=== PATIENT | female | born 1970 | race Caucasian/White ===

== ENCOUNTER 2016-05-06 20:22 | Inpatient (IN) | payer MEDICAID, OTHER ==
[~2016-05-06] VITALS: Ht 172.7 cm; Wt 59.8 kg
[2016-05-06 20:24] VITALS: BP 108/78; PULSE 109
--- NOTE | 2016-05-06 21:34 | ED.REPORT ---
HPI-General Illness Date of Service May 06, 2016 ED Provider: Fermin Brasher MD Patient is a 45 year old female with a history of laparoscopic gastric bypass 10 years ago who presents to the ED with severe LLQ abdominal pain that began at 1930 today. Patient reports the sensation of her stomach being very hard. Patient reports that the pain is so severe that she has not been able to eat anything this evening, meaning she is very thirsty and hungry. Patient admits to only drinking coffee and mountain dew today, with gummy worms as her only food source. Patient also states that she is unable to urinate due to pain. Patient reports losing 200 lbs since her weight loss surgery, with increased weight loss since January of this year. Patient also admits to having several dental infections, for which she has been gargling hydrogen peroxide. The patient states that she did accidentally swallow some, but it made her vomit immediately. Patient admits to chills but denies nausea, vomiting, diarrhea, or fever. Patient also reports having a headache for the past 2 days, which she states is due to an ingrown hair. Nursing Notes Stated Complaint: ABD PAIN Chief Complaint: Female Abdominal Pain Nursing Notes Reviewed: Yes Allergies: Coded Allergies: No Known Allergies (Unverified , 05/06/16) General Time Seen by MD: 21:34 Chief Complaint Abdominal pain Hx Obtained From: Patient Arrived By: Walk-in Sudden in Onset?: No Onset Occurred: 1 - 4 hours ago Symptom Duration: Since onset Location: : Abdomen Quality: Painful Severity: Current: Severe Severity: Maximum: Severe Recent Healthcare: No recent doctor visit, No recent hospitalization, Previous surgery Similar Sx Previous: No Past Medical History Past Medical History Depression PTSD ADD Past Surgical History Gastric bypass (laparoscopic), 10 years ago at [facility] Smoking History Unknown if Ever Smoker Social History Alcohol Use: 1-3 per day Other Social History: , Local resident Ambulatory Status Independent Review of Systems + recent weightloss Full Review of Systems Constitutional: Reports: Chills, Denies: Fever GI: Reports: Abdominal pain, Denies: Diarrhea, Nausea, Vomiting Female: Denies: Dysuria Neurologic: Reports: Headache Complete sys rev & neg: except as marked. Physical Exam Vital Signs Vital Signs Date Time Temp Pulse Resp B/P Pulse Ox O2 Delivery O2 Flow Rate FiO2 05/07/16 01:14 36.8 110 26 140/86 98 Room Air 05/06/16 22:35 36.8 113 28 144/82 97 Room Air 05/06/16 20:24 36.4 109 108/78 Room Air Initial VS: Reviewed Extremities: Vascular intact, Neuro intact Skin: Warm, Dry, No cyanosis Neurologic: Alert, Oriented, Nonfocal Psychiatric: Mood/affect normal, Behavior normal, Normal thought content General/Constitutional: Awake, Alert Appearance / Presentation: Positive: Cachectic (thin) patient is generally reactive to touch dry appearing ENT: Airway patent Mouth: Positive: Mucous membranes dry Dental / Gums: Positive: Decay extensive, Dental caries present, Dentition poor Neck: Supple, Full range of motion Respiratory / Chest: Breath sounds NL, Breath sounds = bilat, No respiratory distress, No rales, No rhonchi, No wheezing Cardiovascular: Heart rate NL, Regular rhythm, Heart sounds NL, No murmurs Abdomen: Soft, No guarding, No rebound Tenderness/Guarding/Rebound: Positive: Tender diffuse (quite tender), Negative: Rigid to palpation Interpretation & Diagnostics Lab Results Interpretation Result Diagram: 05/06/16213305/06/162133 Test 05/06/16 21:34 White Blood Count 7.4th/mm3 (3.8-10.1) Red Blood Count 4.36mil/mm3 (3.90-5.20) Hemoglobin 11.9g/dL (12.0-15.6) Hematocrit 37.1% (35.0-46.0) Mean Corpuscular Volume 85.1fL (81-100) Mean Corpuscular Hemoglobin 27.3pg (27.0-35.0) Mean Corpuscular Hemoglobin Concent 32.1% (32.0-37.0) Red Cell Distribution Width 16.4% (12.3-15.4) Platelet Count 511bil/L (150-400) Neutrophils (%) (Auto) 88.7% (40-74) Lymphocytes (%) (Auto) 7.8% (14-46) Monocytes (%) (Auto) 3.3% (4-12) Eosinophils (%) (Auto) 0% (0-5) Basophils (%) (Auto) 0.1% (0-3) Prothrombin Time 10.4sec (8.1-12.5) Prothromb Time International Ratio 0.97ratio Sodium Level 137mEq/L (134-144) Potassium Level 3.8mEq/L (3.5-5.2) Chloride Level 97mEq/L (97-108) Carbon Dioxide Level 26mmol/L (18-29) Blood Urea Nitrogen 13mg/dL (6-24) Creatinine 0.68mg/dL (0.57-1.00) Estimat Glomerular Filtration Rate 134mL/min (>59) Glucose Level 144mg/dL (60-99) Lactic Acid Level 1.6mmol/L (0.4-2.0) Calcium Level 8.8mg/dL (8.5-10.1) Magnesium Level 1.7mg/dL (1.6-2.6) Total Bilirubin 0.5mg/dL (0.0-1.2) Aspartate Amino Transf (AST/SGOT) 17U/L (0-50) Alanine Aminotransferase (ALT/SGPT) 8U/L (0-32) Alkaline Phosphatase 93U/L (25-150) Total Protein 6.4g/dL (6.4-8.4) Albumin 3.7g/dL (3.4-5.0) Lipase 11U/L (13-60) Hold Frazier Top Tube Received (Received) CT Abd / Pelvis Interpretation CONCLUSION: Findings consistent with dehiscence of the gastric anastomosis with extravasation of air, oral contrast and fluid into the peritoneal cavity. Intra- and extrahepatic duct dilation without obvious obstructing process. Please correlate with lab values. Other findings as noted above. Radiologist: Blake Pickering MD 05/06/2016 - 12:56:51 PM [facility] Study type: Abdom CT oral contrast Interpretation / Wet Read by: Interpret - Radiologist Re-Eval/Medical Decision Med Decision/Clinical Course 45-year-old female with gastric bypass ten years ago done at [facility]. She presents with acute onset abdominal pain without much in way of antecedent symptoms. She presented perforation of her stomach, presumably at the anastomosis, with abundant free air and contrast in her peritoneum. Examination was contacted and did not have availability of beds for her. Surgery was contacted and has seen her here promptly should. She was hydrated and given Zosyn IV. Pain was controlled with IV Dilaudid and Zofran. Transported to the OR in stable condition. Source of Hx: Old records Time of Eval: 23:57 Re-Evaluation/Progress Note: Rechecked the patient, who was informed of her CT result. She confirms that her original gastric bypass was preformed at [facility]. Will call this facility for transfer. Time of Eval: 00:39 Re-Evaluation/Progress Note: [facility] full and will not be able to take the patient. Informed the patient that she will be admitted to [facility]. Patient understands and agrees with this plan. All questions were addressed. Patient is now nauseaed. Consultation : Referral / Consult Name: Ever Serrato MD Consulted With: Surgeon Call Returned at: 00:37 Animal Control Specialist: Will see patient, Agrees with eval, Agrees with plan, Requested OR, Accepts admit Note: Spoke with Dr. Serrato, surgeon, about the patient's case. He agrees to take the patient to the OR and accepts admit. Counseled Regarding: Diagnosis, Lab results, Need for admission Discharge & Departure Shift Change Sign-Out Response to Therapy: Improved Primary Impression: Dehiscence of gastrointestinal anastomosis Additional Impressions: Intestinal perforation Pneumoperitoneum Disposition: ADMITTED TO HOSPITAL Discharge Condition All VS Reviewed: Yes Condition: Stable Referrals: Kirby Bustillos MD (PCP) Crit Care Except Billable Proc Time Spent: 30-74 minutes (thirty minutes) Scribe Attestation Portions of this note were transcribed by Stephanie Kramer. I, Dr. Brasher personally performed the history, physical exam and medical decision-making; I reviewed and confirmed the accuracy of the information in the transcribed note. Signed by: Rivas Ugarte, 05/07/2016, [id number] copies to: Kirby Bustillos MD, Christopher W MD May 06, 2016 21:34 Stephanie Kramer May 06, 2016 21:52
[2016-05-06 21:45] LABS: BASOPHILS % (AUTO) 0.1 % (0-3); EOSINOPHILS % (AUTO) 0 % (0-5); MONOCYTES % (AUTO) 3.3 % (4-12); Mean Corpuscular Hemoglobin 27.3 pg (27.0-35.0); Mean Corpuscular Volume 85.1 fL (81-100); NEUTROPHILS % (AUTO) 88.7 % (40-74); Platelet Count 511 bil/L (150-400)
[2016-05-06] MEDS ORDERED: 0.9% Sodium Chloride 1,000 ML IV ONE (21:50)
[2016-05-06] MEDS ORDERED: Ondansetron 2 mg/mL 2 mL Inj IVPUSH ONE (21:50)
[2016-05-06] MEDS ORDERED: Pantoprazole 4 mg/mL 10 mL Inj IVPUSH ONE (21:50)
[2016-05-06] MEDS ORDERED: Iohexol 300 mg/mL 30 mL Inj PO ONE (21:55)
[2016-05-06 22:01] LABS: Magnesium 1.7 mg/dL (1.6-2.6)
[2016-05-06 22:15] LABS: INR 0.97 ratio
[2016-05-06] MEDS: HYDROmorphone 1 mg/mL Inj IVPUSH PRN ×3 (22:18→23:17)
[2016-05-06 22:35] VITALS: BP 144/82; PULSE 113; RESP 28; O2SAT 97
[2016-05-07] VITALS (19 sets, daily range): BP systolic 101–140; BP diastolic 50–88; PULSE 75–110; RESP 6–26; O2SAT 94–100
[2016-05-07] MEDS ORDERED: Piperacillin-Tazo 3.375 Gm Inj 3.375 GM in Dextrose 5% Minibag Plus 50 ML IV ONE (00:05)
[2016-05-07] MEDS: HYDROmorphone 1 mg/mL Inj IVPUSH PRN ×2 (00:32→01:43)
[2016-05-07] MEDS ORDERED: Ondansetron 2 mg/mL 2 mL Inj IVPUSH ONE (00:40)
[2016-05-07] MEDS ORDERED: 0.9% Sodium Chloride 1,000 ML IV ONE (00:40)
--- NOTE | 2016-05-07 01:29 | PCM.HPANE ---
Patient Data Surgeon Admitting Provider: Attending Provider:Ever Serrato MD Primary Care Physician:Kirby Bustillos MD Other Provider:[facility] Reason for Visit Perforated Viscus Ht/WT & BMI Height (Feet): 5 Height (Inches): 8 Weight (Kilograms): 54.55 Body Mass Index Allergies Coded Allergies: No Known Allergies (Unverified , 05/06/16) Diabetes History Hx Diabetes?: No MRSA MRSA: No History Teeth Condition: Missing Teeth Tooth Decay Hx of Heart Problems?: No Hx of Respiratory Problem?: No Hx Neurologic Problems?: Yes Other History/Comments h/o suicidal ideation Hx of GI Problems?: Yes Other History/Comment s/p gastric bypass, Smoking Status: Unknown if Ever Smoker Stop/Bang Risk Assessment Category Category 1A: Patient has history of documented sleep apnea, and HAS NOT received any narcotic, sedative or anesthesia administration during this stay. Category 1B: Patient has history of documented sleep apnea, and HAS received any narcotic , sedative or anesthesia administration during this stay Category 2: Patient has SUSPECTED Obstructive Sleep Apnea, and HAS received any narcotic , sedative or anesthesia administration during this stay. Category 3: Patient has SUSPECTED Obstructive Sleep Apnea and HAS NOT received narcotic, sedative or anesthesia administration during this stay. Category 4: Outpatient in Procedural Areas with known sleep apnea or who screen positive for High Risk via the STOP/BANG questionnaire. Exam Exam Vital Signs Vital Signs Date Time Temp Pulse Resp B/P Pulse Ox O2 Delivery O2 Flow Rate FiO2 05/07/16 01:14 36.8 110 26 140/86 98 Room Air 05/06/16 22:35 36.8 113 28 144/82 97 Room Air 05/06/16 20:24 36.4 109 108/78 Room Air General Appearance: Alert, Oriented X3, Cooperative, Mild Distress HEENT/AIRWAY: MP 1, Neck Movement (FROM), Mouth Opening (3FB), Other (upper dentures, lower teeth with multiple caries) Lungs: Normal Air Movement Heart: Exam Unremarkable Meds/Labs/Diagnostics Admission Meds Current Medications Sodium Chloride (Normal Saline) 1,000 ml @ 0 mls/hr Q0M ONCE IV Last administered on 05/06/16at 22:17; Start 05/06/16 at 21:50; Stop 05/06/16 at 21 :53; Status DC Pantoprazole (Protonix Inj) 40 mg ONCE ONCE IVPUSH Last administered on at 22:18; Start 05/06/16 at 21:50; Stop 05/06/16 at 21:53; Status DC Ondansetron HCl (Zofran Inj) 8 mg ONCE ONCE IVPUSH Last administered on at 22:18; Start 05/06/16 at 21:50; Stop 05/06/16 at 21:53; Status DC Iohexol 9000 mg 9,000 mg ONCE ONCE PO Last administered on 05/06/16at 22:18; Start 05/06/16 at 21:55; Stop 05/06/16 at 21:56; Status DC Piperacillin Sod/ Tazobactam Sod 3.375 gm/Dextrose/ Water 50 ml @ 100 mls/hr ONCE ONCE IV Last administered on 05/07/16at 00:33; Start 05/07/16 at 00:05; Stop 05/07/16 at 00:34; Status DC Sodium Chloride (Normal Saline) 1,000 ml @ 0 mls/hr Q0M ONCE IV Last administered on 05/07/16at 01:10; Start 05/07/16 at 00:40; Stop 05/07/16 at 00 :41; Status DC Ondansetron HCl (Zofran Inj) 8 mg ONCE ONCE IVPUSH Last administered on at 01:10; Start 05/07/16 at 00:40; Stop 05/07/16 at 00:41; Status DC Labs Test 05/06/16 21:34 White Blood Count 7.4th/mm3 (3.8-10.1) Red Blood Count 4.36mil/mm3 (3.90-5.20) Hemoglobin 11.9g/dL (12.0-15.6) Hematocrit 37.1% (35.0-46.0) Mean Corpuscular Volume 85.1fL (81-100) Mean Corpuscular Hemoglobin 27.3pg (27.0-35.0) Mean Corpuscular Hemoglobin Concent 32.1% (32.0-37.0) Red Cell Distribution Width 16.4% (12.3-15.4) Platelet Count 511bil/L (150-400) Neutrophils (%) (Auto) 88.7% (40-74) Lymphocytes (%) (Auto) 7.8% (14-46) Monocytes (%) (Auto) 3.3% (4-12) Eosinophils (%) (Auto) 0% (0-5) Basophils (%) (Auto) 0.1% (0-3) Prothrombin Time 10.4sec (8.1-12.5) Prothromb Time International Ratio 0.97ratio Sodium Level 137mEq/L (134-144) Potassium Level 3.8mEq/L (3.5-5.2) Chloride Level 97mEq/L (97-108) Carbon Dioxide Level 26mmol/L (18-29) Blood Urea Nitrogen 13mg/dL (6-24) Creatinine 0.68mg/dL (0.57-1.00) Estimat Glomerular Filtration Rate 134mL/min (>59) Glucose Level 144mg/dL (60-99) Lactic Acid Level 1.6mmol/L (0.4-2.0) Calcium Level 8.8mg/dL (8.5-10.1) Magnesium Level 1.7mg/dL (1.6-2.6) Total Bilirubin 0.5mg/dL (0.0-1.2) Aspartate Amino Transf (AST/SGOT) 17U/L (0-50) Alanine Aminotransferase (ALT/SGPT) 8U/L (0-32) Alkaline Phosphatase 93U/L (25-150) Total Protein 6.4g/dL (6.4-8.4) Albumin 3.7g/dL (3.4-5.0) Lipase 11U/L (13-60) Hold Frazier Top Tube Received (Received) Plan Impression Patient chart reviewed, patient interviewed and anesthestic plan with risks, benefits, and alternatives discussed, and informed consent obtained. ASA Physical Status: ASA2 Plus Emergency (perforated viscus) Anesthetic Plan: GA Bene/Risks/Altern/Consents: Yes HP Complete Prior to Induction: Yes Odilon Esposito MD May 07, 2016 01:29
[2016-05-07] MEDS ORDERED: Lactated Ringer's 1,000 ML IV ONE ×2 (02:14→04:15)
[2016-05-07] MEDS: Dextrose 5% Lactated Ringer's 1,000 ML IV SCH ×2 (02:22→15:59)
[2016-05-07] MEDS ORDERED: MetoCLOpramide 5 mg/mL 2 mL Inj IVPUSH PRN ×2 (02:25→03:30)
[2016-05-07] MEDS: Pantoprazole Inj 80 MG in 0.9% Sodium Chloride 80 ML IV SCH ×4 (02:25→23:24)
[2016-05-07] MEDS ORDERED: Ondansetron 2 mg/mL 2 mL Inj IVPUSH PRN ×2 (02:25→03:30)
[2016-05-07] MEDS: Acetaminophen IV 1,000 MG in IV Premix 1 EACH IV SCH ×5 (02:30→20:54)
[2016-05-07] MEDS ORDERED: Bupivacaine-MPF 0.5% W/EPI 30 mL Inj INFILTRATE ONE (02:44)
[2016-05-07 02:49] LABS: APPEARANCE,URINE HAZY (CLEAR,HAZY); COLOR,URINE DARK YELLOW (YELLOW); OCCULT BLOOD,URINE NEGATIVE (NEGATIVE); UROBILINOGEN,URINE NORMAL (NORMAL)
[2016-05-07] MEDS ORDERED: Pantoprazole Inj 80 MG in 0.9% Sodium Chloride 80 ML IV SCH (03:25)
[2016-05-07] MEDS ORDERED: Lactated Ringer's 500 ML IV PRN (03:27)
[2016-05-07] MEDS ORDERED: Lactated Ringer's 1,000 ML IV SCH (03:27)
[2016-05-07] MEDS ORDERED: EPHEDrine Sulfate 50 mg/mL Inj IVPUSH PRN (03:30)
[2016-05-07] MEDS ORDERED: Atropine 0.4 mg/mL Inj IVPUSH PRN (03:30)
[2016-05-07] MEDS ORDERED: fentaNYL-PF 50 mCg/mL 2 mL Inj IVPUSH PRN (03:30)
[2016-05-07] MEDS ORDERED: Dexamethasone 4 mg/mL Inj IVPUSH PRN (03:30)
[2016-05-07] MEDS ORDERED: Labetalol 5 mg/mL 4 mL Inj IV PRN (03:30)
[2016-05-07] MEDS ORDERED: Phenylephrine 10,000 mCg/mL Inj IVPUSH PRN (03:30)
[2016-05-07] MEDS ORDERED: HYDROmorphone 1 mg/mL Inj IVPUSH PRN (03:30)
[2016-05-07] MEDS ORDERED: Albuterol-Ipratropium 3 mL Inhalation Solution NEB PRN (03:30)
--- NOTE | 2016-05-07 04:28 | PCM.ANEP1 ---
Post Anesthesia Phase 1 PACU Phase 1 Assessment Vital Signs see anesthesia record Vital Signs Date Time Temp Pulse Resp B/P Pulse Ox O2 Delivery O2 Flow Rate FiO2 05/07/16 02:03 36.8 110 26 140/86 98 Room Air 05/07/16 01:14 36.8 110 26 140/86 98 Room Air 05/06/16 22:35 36.8 113 28 144/82 97 Room Air Anesthetic Administered: GA Level of Alertness: Sleeping, hard to arouse VERMA's with Equal Strength: Yes Pain: No Nausea or Vomiting: No Oxygen Delivery: Simple Mask Lungs: Normal Air Movement Odilon Esposito MD May 07, 2016 04:28
--- NOTE | 2016-05-07 04:28 | PCM.ANEP2 ---
Post Anesthesia Evaluation ASA/CMS Post Anesthesia VS in Patient's Normal Range?: Yes Resp Stable; Airway Patent?: Yes CV Function & Hydration Stable: Yes Mental Status Recovered?: Yes Pain control Satisfactory?: Yes N/V Control Satisfactory?: Yes Odilon Esposito MD May 07, 2016 04:28
--- NOTE | 2016-05-07 06:31 | NUR ---
Post op Pt arrived to room 3005. She is awake, oriented, and denies abd pain. Currently NPO. NG to low cont sxn. High flow oxygen mask in place at 10L/Min for four more hours Pt verbalized understanding of call light. SCDs on. Grider catheter draining to gravity. JOSHUA draining serous fluid. Care ongoing.
--- NOTE | 2016-05-07 07:13 | DRSVH ---
PROCEDURE: CT ABDOMEN AND PELVIS WITH CONTRAST ([id number]) INDICATIONS: 45 year-old female status post gastric bypass surgery, with abdominal pain. TECHNIQUE: After the administration of oral and intravenous contrast, 5 mm thick sections acquired from the diap hragms to the symphysis. 5 mm thick coronal and sagittal reformats were performed. For radiation do se reduction, the following was used: automated exposure control, adjustment of mA and/or kV accordi ng to patient size. COMPARISON: None. FINDINGS: Preliminary interpretation rendered by [facility]. Image quality: Excellent. ABDOMEN: Lung bases: Lung bases are clear. Heart size is normal. Solid organs: Liver and spleen are normal in size. Right hepatic lobe simple cyst measures 5.0 x 4. 6 x 3.7 cm. Gallbladder is surgically absent, with resultant prominence of the intra-and extrahepatic biliary ducts. Pancreas enhances normally. No adrenal nodules. Kidneys are normal in size and enh ancement, without hydronephrosis. Peritoneum and bowel: There is anterior moderate pneumoperitoneum, as well as extravasation of a lar ge amount of oral contrast into the peritoneal cavity. Stomach, small bowel, and colon loops are norm al in caliber and wall thickness. Nodes and vessels: No retroperitoneal or mesenteric adenopathy. Aorta and inferior vena cava are no rmal in caliber. Miscellaneous: No ventral hernias. PELVIS: Genitourinary: Bladder wall thickness is normal. Uterus is normal in size. The ovaries are not well seen. Miscellaneous: No inguinal hernias or adenopathy. Bones: No suspicious bony lesions. No vertebral body compression fractures. There is L5-S1 disc deg eneration. IMPRESSION: 1. Findings consistent with dehiscence of gastric bypass, with resultant pneumoperitoneum, as well as large amount of oral contrast extravasation into the peritoneal cavity. 2. Right hepatic lobe simple cyst measures up to 5.0 cm. No significant discrepancy with preliminary [facility] report. Dictated by: Juan Edwards M.D. on 05/07/2016 at 7:11 Approved by: Juan Edwards M.D. on 05/07/2016 at 7:11
--- NOTE | 2016-05-07 09:17 | PCM.PNSURG ---
Subjective Visit Information: Reason for Visit Perforated Viscus Surgery/Surgery Date Post-Op Day # Date of Admission: May 07, 2016 at 07:04 Hospital Day # Subjective: Stable overnight. NPO. On PPI gtt and abx. No complaints.UOP 450ml. Labs pending. No NG output. JOSHUA output is trace and serous. Objective Vital Sign- Last 8 Hours Date Time Temp Pulse Resp B/P Pulse Ox O2 Delivery O2 Flow Rate FiO2 05/07/16 07:56 Supplement Oxygen 05/07/16 06:57 36.4 88 16 131/75 100 Non-Rebreather 10.00 05/07/16 06:22 Supplement Oxygen 05/07/16 05:45 78 16 130/69 100 Non-Rebreather 10 05/07/16 05:30 77 11 139/85 100 Non-Rebreather 10 05/07/16 05:20 36.3 76 12 132/88 100 Non-Rebreather 10 05/07/16 05:15 79 13 126/81 100 Non-Rebreather 10 05/07/16 05:10 77 12 113/71 100 Simple Mask 10 05/07/16 05:05 85 17 116/75 100 Simple Mask 10 05/07/16 05:00 36.3 76 7 109/64 100 Simple Mask 10 05/07/16 04:57 75 6 104/59 100 Simple Mask 9 05/07/16 04:48 76 8 103/62 100 Simple Mask 9 05/07/16 04:40 76 10 102/55 100 Simple Mask 9 05/07/16 04:38 80 10 104/50 100 Simple Mask 9 05/07/16 04:33 83 7 101/51 100 Simple Mask 9 05/07/16 04:28 Simple Mask 05/07/16 04:26 36.4 87 7 104/50 100 Simple Mask 9 05/07/16 04:25 85 6 102/54 100 Simple Mask 05/07/16 02:03 36.8 110 26 140/86 98 Room Air Intake and Output- Last 8 Hour 05/07/16 Cumulative From/Thru 07:00 05/06/16 20:24 - 05/07/16 05:22 Intake Total 2000 ml 3000 ml Output Total 453 ml 453 ml Balance 1547 ml 2547 ml Intake IV Total 2000 ml 3000 ml Output Urine Total 450 ml 450 ml Estimated Blood Loss 3 ml 3 ml General: Alert, Oriented X3, Cooperative, No Acute Distress, Other (NG in place , no output. ) Abdomen: Soft, Appropriately tender, Non-distended, Other (incisions c/d/i. JOSHUA with small amount of serous fluid.) Result Diagram: 05/06/16213305/06/162133 Assessment & Plan Impression POD#1 lap Mehdi patch for perforated marginal ulcer Problems: Plan NPO Continue nasojejunal tube, PPI, antibiotics Ambulate TID d/c pepe Floor status I will f/u on labs Tila Hathaway MD May 07, 2016 09:17
[2016-05-07] MEDS: Heparin 5,000 Unit/mL Inj SUBQ SCH ×2 (10:23→15:59)
[2016-05-07] MEDS ORDERED: fentaNYL-PF 50 mCg/mL 2 mL Inj ONE (11:21)
--- NOTE | 2016-05-07 12:06 | NUR ---
Social Work-screening: Data: Pt is a 45 y/o female who was admitted on 05/07/16 for perforated viscus per H&P. Pt's insurance is [facility] blind disabled and [facility] Medicaid and PCP is Kirby Bustillos MD. EMR reviewed. Pt resides at home with her where she remains independent with ADLS. Pt has been up independent in her room. No anticipated discharge needs. SW will continue to follow if needs arise. Assessment:Pt who is independent at baseline. Plan:Pt to discharge home when medically stable via POV. No anticipated discharge needs. SW will continue to follow if needs arise. STELLA Acosta
[2016-05-07] MEDS: Piperacillin-Tazo 3.375 Gm Inj 3.375 GM in Dextrose 5% Minibag Plus 50 ML IV SCH (12:53)
--- NOTE | 2016-05-07 13:03 | HP ---
[address] [address] HISTORY AND PHYSICAL PATIENT: SUKHJINDER CHIRIONS : 1970 MR#: [id number] ADMIT: 05/07/2016 JOB ID: [id number] CORRECTED REPORT: DATE OF SERVICE: 05/07/2016 REASON FOR CONSULTATION: Ms. Chirinos is seen in consultation at request of Dr. Brasher of the emergency department regarding further evaluation and management of possible perforation in the setting of a Flavia-en-Y gastric bypass. HISTORY OF PRESENT ILLNESS: Ms. Chirinos is 45-year-old female with a history of a laparoscopic Flavia-en-Y gastric bypass for weight loss approximately 10 years ago with subsequent 20 pound weight loss. She was in her usual state of health yesterday evening when she developed acute onset abdominal pain which she described as sharp and radiating to her back. This was accompanied by some nausea and retching. She presented to the emergency department where a CT scan with oral contrast was obtained demonstrating extravasation of the contrast in the area of the gastrojejunostomy. Apparently Dr. Brasher attempted to transfer to [facility] where she had the original procedure, but they were unable to take her. He therefore called me for a surgical consult. The patient endorses ongoing pain. She has never had this pain before. She has not had followup for her gastric bypass in many years and believes that she is malnourished. PAST MEDICAL HISTORY: 1. Dental decay. 2. PTSD. 3. Depression. 4. ADD. MEDICATIONS: The patient cannot recall all her medications. She tells me she is on clonazepam and . ALLERGIES: She has no known drug allergies. PAST SURGICAL HISTORY: 1. Flavia-en-Y gastric bypass. 2. 1992. FAMILY HISTORY: Family history is reviewed and is unremarkable. SOCIAL HISTORY: She lives in [place]. She denies smoking. REVIEW OF SYSTEMS: Full review of systems is positive for abdominal pain, nausea, vomiting, fevers, chills and ringing in her ears and dizziness. She has been tachycardic since admission to the emergency department with heart rate from 109-113. She has been afebrile, temperature 36.8 degrees, blood pressure is 140/86, respiratory rate 26 breaths per minute. In general, she appears uncomfortable but no acute distress. Cardiovascular: She has tachycardia. Vascular: No carotid bruit. Neck: She has no thyromegaly. She has no cervical lymphadenopathy. GI: Her abdomen is exquisitely tender to palpation. Extremities: Warm without significant edema. Skin is warm without rash. Neuro is grossly intact. Psych: She is pleasant but very tangential. LABORATORIES: White blood cell count upon admission was 7.4, hematocrit was 37.1, platelet count was 511. Creatinine was 0.68. INR was 0.97 IMAGING: CT scan is personally reviewed and as per the HPI. ASSESSMENT AND PLAN: This is a 45-year-old female with a history of Flavia-en-Y gastric bypass, now with perforation and extravasation of contrast likely from a marginal ulcer. I recommend urgent exploration. I will plan to do this laparoscopically. If this is a marginal ulcer I can hopefully fix this with a laparoscopic Mehdi patch. We discussed the possibility of having to convert to open for revision of her anastomosis. The patient understands. This will be done as soon as possible. Corrected by ERICK 05/23/16 at 7:42am Report type.
[2016-05-07] MEDS ORDERED: KLO5T PO (13:44)
[2016-05-07] MEDS ORDERED: Propofol 10,000 mCg/mL 20 mL Inj ONE (13:45)
[2016-05-07] MEDS ORDERED: Ondansetron 2 mg/mL 2 mL Inj ONE (13:45)
[2016-05-07] MEDS ORDERED: Succinylcholine Chloride 20 mg/mL 5 mL Inj ONE (13:45)
[2016-05-07] MEDS ORDERED: Dexamethasone 4 mg/mL Inj ONE (13:45)
[2016-05-07] MEDS ORDERED: Phenylephrine/NS-PF 100 mCg/mL 5 mL Syringe IVPUSH ONE (13:45)
[2016-05-07] MEDS ORDERED: Rocuronium 10 mg/mL 5 mL Inj ONE (13:45)
[2016-05-07] MEDS ORDERED: LISD50CA2 PO (13:47)
[2016-05-07] MEDS ORDERED: LISD20CA4 PO (13:48)
[2016-05-07] MEDS ORDERED: ACET-171 PO (13:49)
[2016-05-07] MEDS ORDERED: IBUP400T22 PO (13:50)
[2016-05-07] MEDS ORDERED: RANI150C4 PO (13:51)
--- NOTE | 2016-05-07 13:59 | NUR ---
NUTRITION ASSESSMENT: ASSESS:45 YO female with a history of Flavia-en-Y gastric bypass, admitted with perforation and extravasation of contrast likely from a marginal ulcer. Surgery planning an urgent exploration this afternoon laparoscopically. PMHx:Dental decay, PTSD, depression, ADD. DIET:NPO. LABS: Reviewed. Glu 144, Lipase 11. MEDICATIONS: Reviewed. NUTRITION FOCUSED PHYSICAL ASSESSMENT: GI symptoms / stool: No stool reported.Joey: 14 Skin Integrity: No issues reported. ANTHROPOMETRICS: Current Wt: 61.8 kgBMI: 20.0 kg/m2. IBW: 63.6 kg (97.1% IBW) ESTIMATED NEEDS (GI SURGERY): Calories: 1545 - 1854 kcal (25 - 30 kcal / kg BW) Protein: 62 - 93 g protein (1.0 - 1.5 g / kg BW) NUTRITION DIAGNOSIS: 1)Altered GI function related to perforation and extravasation of contrast likely from a marginal ulcer, as evidenced by NPO status, pending surgery. 2)Increased nutrient needs related to 1). INTERVENTION: 1) Will add Impact Advanced Recovery supplement once diet advanced to full liquids. 2) MONITOR/EVALUATE: Diet advance / tolerance, PO intake, labs, GI/nutrition status. Follow up per moderate nutrition risk guidelines.
[2016-05-07] MEDS: HYDROmorphone 0.5 mg/0.5 mL iSecure Syringe IVPUSH PRN ×2 (15:59→18:32)
--- NOTE | 2016-05-07 17:58 | NUR ---
Mobility patient OOB twice on day shift, first time walked approx 200ft in vicente, 2nd time 400 ft. tolerated well. Pt reports minimal pain at surgical site rate abdominal pain 2-4/10 throughout shift, pain increasing with movement/ambulation. Grider catheter DC'd at 1215hrs, patient able to void at 1500hrs. continue to monitor and encourage increased mobility.
[2016-05-08] MEDS: Piperacillin-Tazo 3.375 Gm Inj 3.375 GM in Dextrose 5% Minibag Plus 50 ML IV SCH ×3 (00:41→23:45)
[2016-05-08] MEDS: HYDROmorphone 0.5 mg/0.5 mL iSecure Syringe IVPUSH PRN ×5 (00:57→21:54)
[2016-05-08] MEDS: Heparin 5,000 Unit/mL Inj SUBQ SCH ×3 (00:57→16:56)
--- NOTE | 2016-05-08 01:19 | OP ---
[address] [address] OPERATIVE REPORT PATIENT: SUKHJINDER GARCIA : 1970 MR#: [id number] ADMIT: 05/07/2016 JOB ID: [id number] DATE OF SURGERY: 05/07/2016 ANESTHESIA: General. PREOPERATIVE DIAGNOSIS(ES): 1. Perforated marginal ulcer. 2. History of Flavia-en-Y gastric bypass. POSTOPERATIVE DIAGNOSIS(ES): 1. Perforated marginal ulcer. 2. History of Flavia-en-Y gastric bypass. OPERATIVE PROCEDURE: Laparoscopic repair of perforated marginal ulcer with omental patch (Mehdi patch). SURGEON: Ever Serrato MD PUMP SERVICER SUPERVISOR: Ruthie Key PA-C (Motor Adjuster was required for the safe and timely completion of the case). COMPLICATIONS: None. ESTIMATED BLOOD LOSS: Minimal. CONDITION: Satisfactory. DRAINS: A 19-Ecuadorean JOSHUA drain left over the repair. An NG tube was also placed across the gastrojejunal anastomosis. INDICATIONS/SIGNIFICANT HISTORY: The patient is a 45-year-old female who underwent a laparoscopic Flavia-en-Y gastric bypass approximately 10 years ago. She tells me that she lost 200 pounds. She has not had followup care in the last few years. She has not been taking a PPI. She developed acute onset abdominal pain yesterday evening and presented to the emergency department. A CT scan with oral contrast showed extravasation of the gastrojejunal anastomosis. DESCRIPTION OF PROCEDURE: The patient was taken to the operating room and placed in a supine position. General anesthesia was administered. Preoperative antibiotics were given. The abdomen was prepped and draped in standard surgical fashion. A procedural pause was performed. Entry was gained to the abdomen through a small supraumbilical incision using a 5 mm Optiview trocar. Pneumoperitoneum was achieved without complication. There was diffuse contamination of the abdominal sulcus. Local anesthetic was injected, followed by insertion of a 5 mm port in the left lateral abdomen. A second 5 mm port was placed in the right upper quadrant to accommodate the liver retractor. A fourth 5 mm port was placed in the left mid abdomen and the left lateral most port was eventually upsized to a 12 mm port to accommodate a needle operator and truck driver. The abdomen was completely irrigated out with 6 L of saline. The hole was easily identified. The anatomy in terms of where exactly the hole was located on the jejunum was not easily visible due to all the inflammatory response. I had to get the anesthesiologist to pass an NG tube. This could be seen filling the jejunum past the gastrojejunal anastomosis. I then put some irrigation over the hole and had him insufflate, confirming that that was indeed the area where bubbles were admitted. There was no evidence of a leak anywhere else. After the abdomen was completely irrigated out and the NG tube placed, I then proceeded to free up the omentum from some adhesions in the pelvis. The omentum was then brought up and an omental patch created. I used 3-0 silk sutures and incorporated a piece of omentum into a loose closure of the hole. I also placed two more stitches, one in the jejunum and one in the gastric pouch, and secured the omentum to take any tension off the Mehdi patch. The liver retractor was then removed and a 19-Ecuadorean drain brought through that site in the right upper quadrant. The 12 mm port was removed from the left upper quadrant, and that fascia was sutured using 0 PDS suture with a laparoscopic suture passer. The remaining ports were removed and pneumoperitoneum released. Local anesthetic had been injected. The skin was closed using 4-0 Monocryl. The entire procedure was well tolerated.
[2016-05-08] MEDS: Dextrose 5% Lactated Ringer's 1,000 ML IV SCH ×2 (02:46→18:39)
--- NOTE | 2016-05-08 04:14 | NUR ---
Pain control Pt c/o abdominal tenderness with movement. She states that she "expected to need more medication the second night". Denies nausea. Given 2 successive doses of IV dilaudid. Pt able to rest adequately following pain medication administration. (See flow sheet) Will cont to monitor
[2016-05-08] MEDS: Acetaminophen IV 1,000 MG in IV Premix 1 EACH IV SCH ×4 (04:35→21:54)
[2016-05-08 05:20] VITALS: BP 112/65; PULSE 79; RESP 18; O2SAT 99
[2016-05-08 06:08] LABS: BASOPHILS % (AUTO) 0.1 % (0-3); EOSINOPHILS % (AUTO) 0.3 % (0-5); Mean Corpuscular Hemoglobin 26.9 pg (27.0-35.0); NEUTROPHILS % (AUTO) 88.1 % (40-74); Platelet Count 306 bil/L (150-400)
[2016-05-08] MEDS: Pantoprazole Inj 80 MG in 0.9% Sodium Chloride 80 ML IV SCH ×2 (10:13→18:39)
[2016-05-08] MEDS ORDERED: Calcium GLUCO 10% (mEq) Inj 4.65 MEQ in Dextrose 5% 50 ML IV ONE (10:20)
[2016-05-08] MEDS ORDERED: KCl 40 mEq/D5W 500 mL 40 MEQ in IV Premix 1 EACH IV ONE (10:25)
--- NOTE | 2016-05-08 11:17 | NUR ---
Esophagus Pharynx Order XR called stating that the MD will need to call on-call radiologist if she would like the swallow evaluation completed either today or tomorrow due to the holiday weekend. XR has availability on Monday. Dr Hathaway notified. she states that the swallow evaluation can be done on Monday.
--- NOTE | 2016-05-08 13:41 | PROG NOTE ---
[address] [address] PROGRESS NOTE PATIENT: SUKHJINDER GARCIA : 1970 MR#: [id number] ADMIT: 05/07/2016 JOB ID: [id number] DATE: 05/08/2016 SUBJECTIVE: This is a 45-year-old woman with a history of Flavia-en-Y gastric bypass who underwent laparoscopic Mehdi patch of a perforated marginal ulcer. She got out of the OR yesterday morning around 5 a.m., so technically today is postoperative day one. Yesterday, she ambulated in the hallways. Her vital signs have been normal. She has had 800 mL of urine output. JOSHUA drain output was 75 mL overnight. There is no reported NG tube output, and I do not see any in the canister this morning. She has mild abdominal tenderness but no complaints. No nausea or vomiting. OBJECTIVE: Temperature 36.6, heart rate 79, blood pressure 112/65, respiratory rate of 18, saturation 99% on room air. General: Awake and alert, in no acute distress. NG tube is in place. Abdomen: Soft, appropriately tender. Dressings are clean, dry, and intact. JOSHUA drain has a small amount of murky serous fluid within it, no blood. LABORATORY: White blood cell count is 10.7, hematocrit 29.4, platelets 306. Basic metabolic panel is within normal limits with the exception of potassium 3.3, calcium 7.8. ASSESSMENT: A 45-year-old woman with a perforated marginal ulcer status post laparoscopic Mehdi patch. Today is postoperative day one, as she got out of the OR yesterday in the early hours of the morning. PLAN: 1. Continue ambulation. 2. I have ordered an upper GI swallow study to be performed. Given that this is a holiday weekend, it should be done at some time in the next 48 hours, pending availability of radiology staff. 3. I will replete her calcium and potassium and have her labs repeated in the morning. [facility]ENTERS[facility]mer
--- NOTE | 2016-05-08 17:39 | NUR ---
Mobility/Pain patient able to walk in [place] twice so far on day shift, making one loop each time (400ft). patient tolerated well and stable on feet. patient does require encouragement to walk. patient reporting achy/sharp abdominal incisional pain IV dilaudid 0.5mg as needed has been effective in controlling. patient rating a tolerable level at 3-4/10 and 6/10 when requesting pain medication. Bowel tones are hypoactive in all abdominal quads this afternoon. patient denies flatus. Continue to monitor and encourage ambulation.
[2016-05-08 17:59] VITALS: BP 112/70; PULSE 74; RESP 20; O2SAT 100
[2016-05-08 20:55] VITALS: BP 127/74; PULSE 74; RESP 16; O2SAT 98
--- NOTE | 2016-05-08 22:25 | NUR ---
Activity Pt up OOB to walk the halls. She walked approx 500feet. Tolerated activity Encouraged to walk more Using I.S. frequently. Will cont to monitor
[2016-05-09] MEDS: Heparin 5,000 Unit/mL Inj SUBQ SCH ×3 (00:20→17:24)
[2016-05-09] MEDS: HYDROmorphone 0.5 mg/0.5 mL iSecure Syringe IVPUSH PRN ×5 (02:27→21:21)
[2016-05-09] MEDS: Pantoprazole Inj 80 MG in 0.9% Sodium Chloride 80 ML IV SCH ×2 (04:33→16:46)
[2016-05-09] MEDS: Dextrose 5% Lactated Ringer's 1,000 ML IV SCH ×2 (04:35→16:46)
[2016-05-09 04:46] VITALS: BP 127/76; PULSE 68; RESP 16; O2SAT 100
[2016-05-09 06:30] LABS: Mean Corpuscular Hemoglobin 27.3 pg (27.0-35.0); Mean Corpuscular Volume 86.6 fL (81-100)
--- NOTE | 2016-05-09 08:08 | PCM.PNSURG ---
Subjective Visit Information: Reason for Visit Perforated Viscus Surgery/Surgery Date Post-Op Day # Date of Admission: May 07, 2016 at 07:04 Hospital Day # Subjective: c/o sore throat from NGT; been out of bed to chair, no flatus yet Objective Objective Awake in bed Abd: incisions and dressings dry, slightly more tender on the L side, JOSHUA --> 45cc serous output Vital Sign- Last 8 Hours Date Time Temp Pulse Resp B/P Pulse Ox O2 Delivery O2 Flow Rate FiO2 05/09/16 04:46 36.6 68 16 127/76 100 Room Air Intake and Output- Last 8 Hour 05/09/16 Cumulative From/Thru 07:00 05/06/16 20:24 - 05/09/16 04:47 Intake Total 1200 ml 8063 ml Output Total 695 ml 2453 ml Balance 505 ml 5610 ml Intake Oral 0 ml 0 ml IV Total 1200 ml 8063 ml Output Urine Total 650 ml 2300 ml Drainage Total 45 ml 150 ml Estimated Blood Loss 3 ml # Voids 1 Result Diagram: 05/09/16 0525 05/09/16 0525 Assessment & Plan Impression POD #2 s/p lap repair of perforation H/o jhon en y gastric bypass Problems: Plan Contrast study tomorrow Continue NGT Throat lozenge or spray for discomfort Ambulate Continue zosyn VTE Prophylaxis: Sub-Q Heparin (Unfractionated) Ivan Toro MD May 09, 2016 08:08
[2016-05-09] MEDS ORDERED: Benzocaine (Hurricaine) 20% Unit-Dose Spray ORAL PRN (10:45)
[2016-05-09] MEDS: Benzocaine-Menthol Lozenge 2/Pkg PO PRN ×2 (11:38→21:40)
--- NOTE | 2016-05-09 11:57 | NUR ---
Pain/Sore Throat: Patient complained of abdominal pain 6/10 on pain scale. IV Dilaudid administered. On reassessment, patient states pain tolerable @ 4/10 on pain scale. Patient complained of sore throat from NG tube. Cepacol lozenge administered.
[2016-05-09] MEDS: Piperacillin-Tazo 3.375 Gm Inj 3.375 GM in Dextrose 5% Minibag Plus 50 ML IV SCH (12:10)
[2016-05-09 15:43] VITALS: BP 132/79; PULSE 78; RESP 16; O2SAT 100
[2016-05-09 21:09] VITALS: BP 132/64; PULSE 82; RESP 16; O2SAT 98
[2016-05-10] MEDS ORDERED: 0.9% Sodium Chloride 250 ML ONE (00:59)
[2016-05-10] MEDS: HYDROmorphone 0.5 mg/0.5 mL iSecure Syringe IVPUSH PRN ×2 (01:37→06:00)
[2016-05-10] MEDS: Piperacillin-Tazo 3.375 Gm Inj 3.375 GM in Dextrose 5% Minibag Plus 50 ML IV SCH ×2 (01:37→13:01)
[2016-05-10] MEDS: Heparin 5,000 Unit/mL Inj SUBQ SCH ×3 (01:38→16:48)
[2016-05-10] MEDS: Pantoprazole Inj 80 MG in 0.9% Sodium Chloride 80 ML IV SCH ×3 (01:38→16:44)
[2016-05-10] MEDS: Dextrose 5% Lactated Ringer's 1,000 ML IV SCH ×2 (02:18→20:08)
--- NOTE | 2016-05-10 04:35 | NUR ---
Abdominal pain/distension/fever Patient having increased abdominal pain 8/10, left abdominal area appears more swollen than right. bowel tones hypoactive. patient is not passing gas and has not had a bowel movement. Patient was given Ice to help with swelling. 30 minutes later MD paged patient had temp of 101. Patient reports "I just don't feel right". MD notified of abdominal pain,distension,bowel tones, and temperature. no new orders continue to monitor. Patient medicated with Dilaudid 0.5mg every 4 hours. patient reports that it helps take the edge off her pain. Patient has been sleeping occasionally throughout the night.
--- NOTE | 2016-05-10 04:43 | NUR ---
Protonix gtt Pharmacist confirmed that it is ok to run Protonix gtt with D5LR. No precipitate seen in IV line. NS and zosyn infusing in separate IV.
[2016-05-10 05:44] VITALS: BP 122/70; PULSE 63; RESP 16; O2SAT 99
[2016-05-10 05:46] LABS: BASOPHILS % (AUTO) 0.1 % (0-3); EOSINOPHILS % (AUTO) 0.7 % (0-5); Mean Corpuscular Hemoglobin 26.8 pg (27.0-35.0); Mean Corpuscular Volume 87.2 fL (81-100); Platelet Count 287 bil/L (150-400)
[2016-05-10] MEDS: Benzocaine-Menthol Lozenge 2/Pkg PO PRN ×2 (06:00→13:00)
--- NOTE | 2016-05-10 09:10 | PCM.PNSURG ---
Subjective Date of Service: May 10, 2016 Date of Service: May 10, 2016 Visit Information: Reason for Visit: Postop visit Perforated Marginal Ulcer POD # 3 S/P Laparoscopic repair of perforated marginal ulcer with omental patch (Mehdi patch). Subjective: Stable overnight, VSS, afebrile, voiding, ambulating, pain control could be better Gastrointestinal: Passing Flatus Pain Management: IV Push Postop Activity: Ambulate without Assist Objective Vital Sign- Last 8 Hours Date Time Temp Pulse Resp B/P Pulse Ox O2 Delivery O2 Flow Rate FiO2 05/10/16 05:44 37.4 63 16 122/70 99 Room Air Intake and Output- Last 8 Hour 05/10/16 Cumulative From/Thru 07:00 05/06/16 20:24 - 05/10/16 05:49 Intake Total 0 ml 9239 ml Output Total 400 ml 3353 ml Balance -400 ml 5886 ml Intake Oral 0 ml 0 ml IV Total 9239 ml Output Urine Total 400 ml 3200 ml Drainage Total 150 ml Estimated Blood Loss 3 ml # Voids 1 General: Alert, Oriented X3, No Acute Distress Lungs: Clear to Auscultation Heart: Regular Rate/Rhythm Abdomen: Soft, Appropriately tender, Non-distended SURGICAL WOUND : Dressing & Drainage Status: Intact Wound Drainage Type: JOSHUA Drain #1 (45 ml last 24 hrs), Other (NG No output) Extremities: Warm, Thigh&Calf Soft/Nontender Neuro: Cranial Nerves 2-12 nl Catheters: None Result Diagram: 05/10/16 0525 05/09/16524 Assessment & Plan Impression 45 yo female Hx Flavia-en-Y gastric bypass 10 years ago with 200 lb weight loss which she has maintained Primary Diagnosis: Perforated Marginal Ulcer Secondary Diagnosis: PTSD Depression Anxiety Dental Decay Hx C Section 1992 Problems: Plan Upper GI Gastrografin study this AM 1. If no extravasation may start Clear Fluid diet and advance as tolerated 2. Restart Home meds 3. Throat lozenge or spray for discomfort 4. Ambulate 5. Continue Zosyn 6. Continue PPI VTE Prophylaxis: Sub-Q Heparin (Unfractionated) Resuscitation Status: CPR: Attempt Resuscitation Rtuhie Key PA-C May 10, 2016 09:10
--- NOTE | 2016-05-10 09:35 | DRSVH ---
PROCEDURE: X-RAY UPPER GI WITH GASTROGRAPHIN ([id number]) INDICATIONS: anastomotic perforation COMPARISON: None. FINDINGS: KUB: Preprocedural smoking pipe maker film demonstrates a normal bowel gas pattern. NGT is present. There are 2 drainage catheters projecting over the abdomen. Cholecystectomy clips are present. No suspicious abdo teodora calcifications. Visualized solid organ contours appear normal. Bony structures appear unremar kable. Upper GI examination: The esophagus is within normal limits. There is no extravasation of contrast. G astrojejunal anastomosis is present. IMPRESSION: No extravasation of contrast from the upper GI tract. Dictated by: Maria Eugenia Carmichael M.D. on 05/10/2016 at 9:33 Approved by: Maria Eugenia Carmichael M.D. on 05/10/2016 at 9:33
--- NOTE | 2016-05-10 12:27 | NUR ---
NG d/c Per surgery orders, NG was d/c. Pt now on clear liquids, 3 options provided. pt tolerating it well. Pt uses call light appropriately. Will continue to monitor.
[2016-05-10 13:24] VITALS: BP 131/78; PULSE 71; RESP 16; O2SAT 99
--- NOTE | 2016-05-10 13:55 | NUR ---
Social Work-continued d/c planning: Data:EMR Reviewed. Pt is on day 3 of hospitalization for perforated viscus per H&P. Pt is several days out from discharge. Per Surgery, NG tube to be removed today and working on advancing diet, clears today. Pt has been up ambulating in the hallways independently. No anticipated discharge needs. SW will continue to follow if needs arise. Assessment:Pt who is independent at baseline. Plan:Pt to discharge home when medically stable via POV. No anticipated discharge needs. SW will continue to follow if needs arise. STELLA Acosta
[2016-05-10 15:37] VITALS: BP 115/64; PULSE 72; RESP 16; O2SAT 100
--- NOTE | 2016-05-10 15:45 | NUR ---
transfet mpc 3005 to moc 250-2 arrive on floor, a/o x 3 denies nausea, denies pain. ba x 2 cdi, elba drain compressed. bs cl ilat. Pt. asked if she wishes staff to notify significant others of transfer, declined et stated she would be responsible to do that.
--- NOTE | 2016-05-10 15:48 | NUR ---
Transfer to [facility] 250-2 Pt transferred to [facility] from [facility] at 1530 via [place] by primary RN and CAREER TECHNICAL EDUCATION TEACHER. Report called to nurse Posey. All personal belongings left with pt. Including Rx throat lozenges. 2 IVs infusing (PPI and Zosyn)
[2016-05-10 18:30] VITALS: BP 155/92; PULSE 86; O2SAT 96
[2016-05-11] MEDS ORDERED: 0.9% Sodium Chloride 100 ML ONE (00:43)
[2016-05-11] MEDS: Piperacillin-Tazo 3.375 Gm Inj 3.375 GM in Dextrose 5% Minibag Plus 50 ML IV SCH (00:53)
[2016-05-11] MEDS: Heparin 5,000 Unit/mL Inj SUBQ SCH ×3 (01:00→16:41)
[2016-05-11 01:13] VITALS: BP 117/69; PULSE 62; RESP 16; O2SAT 100
--- NOTE | 2016-05-11 04:09 | NUR ---
PROTONIX Per previous note, reconfirmed protonix okay to run with D5LR, since oncoming to the shift they were running separately. Will run the two together so fluids can run continuously and will pass on to day shift. Continuing care.
[2016-05-11 05:00] VITALS: BP 107/67; PULSE 62; RESP 16; O2SAT 99
[2016-05-11] MEDS: Pantoprazole Inj 80 MG in 0.9% Sodium Chloride 80 ML IV SCH (05:21)
[2016-05-11 08:30] VITALS: BP 113/62; PULSE 80; RESP 18; O2SAT 100
--- NOTE | 2016-05-11 10:04 | PROG NOTE ---
[address] [address] PROGRESS NOTE PATIENT: SUKHJINDER GARCIA : 1970 MR#: [id number] ADMIT: 05/07/2016 JOB ID: [id number] DATE: 05/11/2016 SUBJECTIVE: The patient is seen postoperative day five from a laparoscopic Mehdi patch for perforated marginal ulcer. Yesterday, she underwent an upper GI which showed no evidence of persistent leak. Her NG tube has been removed and she is started on a full liquid diet. She has remained afebrile and hemodynamically normal over the last 24 hours. This morning she is alert and oriented and comfortable. She has no significant abdominal pain other than some very mild incisional pain. Her JOSHUA drain remains in place with some murky fluid out. Over the last 24 hours, she has had one bowel movement. Her JOSHUA drain put out 25 cc. LABORATORY STUDIES: Her white blood cell count today is 7 from 12.5 yesterday. Her hematocrit remained stable at 28. Her creatinine is 0.41. ASSESSMENT AND PLAN: This is a 45-year-old female, about 10 years out from a Flavia-en-Y gastric bypass complicated by a recent perforated marginal ulcer for which I performed a laparoscopic Mehdi patch five days ago. Overall, she seems to be doing very well. I am going to stop her antibiotics and IV fluids as well as her PPI drip. I will start her on oral twice daily PPI. I am going to reassess her white count tomorrow and if it remains stable, her JOSHUA drain can come out and she will go home then. I am going to try and arrange for a followup with , a bariatric nurse down in [place] as unfortunately there is no good ongoing bariatric care available up here at [facility].
--- NOTE | 2016-05-11 14:16 | NUR ---
JOSHUA JOSHUA drain noted to be leaky at 1400 with dressing saturated with serous/murky fluid. Dressing changed and labeled. To monitor.
--- NOTE | 2016-05-11 14:39 | NUR ---
NUTRITION CONSULT: ASSESS: 45 YO female with a history of Flavia-en-Y gastric bypass (10 yrs ago). Upon admit pt underwent laparoscopic Mehdi patch of a perforated marginal ulcer, now POD #4. NGT d/cd yesterday and pts diet advanced to full liquids pt tolerating well. She states that at home she eats a low carb, high protein diet, and small frequent meals. She currently is not taking any bariatric vitamins d/t financial constraints but is still taking a normal MVI. Her wt has been stable at about 131 lbs. She denies any unintentional wt loss. Pt requesting specific information on calorie and protein needs. PMHx: Dental decay, PTSD, depression, ADD. DIET: Full liquids, PO 100% LABS: Reviewed. Cr 0.41, Glu 120, Ca 7.6 MEDICATIONS: Reviewed. NUTRITION FOCUSED PHYSICAL ASSESSMENT: GI symptoms / stool: No BM noted Joey: 16 Skin Integrity: No issues reported. Overall Appearance: Thin, tall woman - thinning noted in cheeks, LBM appears normal ANTHROPOMETRICS: Current Wt: 59.8 kg BMI: 20 kg/m2. Admit wt: 61.8 kg IBW: 63.6 kg Recent wt changes: Wt appears stable ESTIMATED NEEDS (GI SURGERY): Calories: 1545 - 1854 kcal (25 - 30 kcal / kg BW) Protein: 62 - 93 g protein (1.0 - 1.5 g / kg BW) NUTRITION DIAGNOSIS: 1) Altered GI function related to perforation and extravasation of contrast likely from a marginal ulcer, as evidenced by NPO status, pending surgery.---IMPROVING 2) Inadequate oral intake related to GI changes as evidenced by need for emergent GI surgery and NPO status.---IMPROVING INTERVENTION: 1) Continue Impact TID 2) Discussed nutrition therapy for Flavia-en-y and provided sample menus for estimated needs MONITOR/EVALUATE: Diet advance / tolerance, PO intake, labs, GI/nutrition status. Follow up per moderate nutrition risk guidelines.
[2016-05-11 16:40] VITALS: BP 105/61; PULSE 84; RESP 18; O2SAT 100
[2016-05-11] MEDS: Pantoprazole 40 mg ER24 Tablet PO SCH (16:41)
--- NOTE | 2016-05-11 17:50 | NUR ---
Phlebitis L arm AC/upper arm area red, hard and tender Addendum: 05/11/16 at 1755 by LALY MAYO RN Pt stating IV was in this location prior. Heat attempted today. Ice provided this evening. Area marked with adeline. Dr. Rojelio raines to notify. Addendum: 05/11/16 at 1758 by LALY MAYO RN Dr. Serrato to assess tomorrow, suggested warm compresses, no other new orders. Notified of mild temp this evening.
[2016-05-11 20:51] VITALS: BP 109/70; PULSE 78; RESP 18; O2SAT 98
[2016-05-12] MEDS: Heparin 5,000 Unit/mL Inj SUBQ SCH ×2 (00:33→08:29)
[2016-05-12 01:01] VITALS: BP 112/68; PULSE 81; RESP 18; O2SAT 99
[2016-05-12 05:21] VITALS: BP 128/73; PULSE 56; RESP 18; O2SAT 100
[2016-05-12] MEDS: Pantoprazole 40 mg ER24 Tablet PO SCH (08:29)
[2016-05-12 08:35] VITALS: BP 113/86; PULSE 79; RESP 18; O2SAT 100
[2016-05-12 09:48] LABS: BASOPHILS % (AUTO) 0.2 % (0-3); EOSINOPHILS % (AUTO) 1.4 % (0-5); MONOCYTES % (AUTO) 9.8 % (4-12); Mean Corpuscular Volume 87.2 fL (81-100); NEUTROPHILS % (AUTO) 72.8 % (40-74); Platelet Count 406 bil/L (150-400)
--- NOTE | 2016-05-12 10:10 | NUR ---
Status surgery at bedside. notified of L arm phlebitis and leaking JOSHUA drain. Joshua likely to be removed today. WBC stable.
--- NOTE | 2016-05-12 10:40 | PCM.PNSURG ---
Subjective Date of Service: May 12, 2016 Date of Service: May 12, 2016 Visit Information: Reason for Visit Perforated Viscus Surgery/Surgery Date Post-Op Day # 6 Date of Admission: May 07, 2016 at 07:04 Subjective: Patient is seen sitting up in bed, feeling well. She is tolerating full liquids. No nausea or vomiting or abdominal pain. She states her left elbow, at the site of a previous IV which blew has been swollen and stiff. The nurse outlined it with a marker and they have been using warm compresses. Postop General: No Complaints Gastrointestinal: Tolerating Oral Feedings (tolerating full liquid), No N/V, Passing Flatus, Passing Stool (2 BM yesterday) Pain Management: PO (tylenol only) Postop Activity: Ambulating in [place] Objective Objective Left antecubital region with faint erythema. Does not extend to the outlined area. Sensation and pulse intact distally. Vital Sign- Last 8 Hours Date Time Temp Pulse Resp B/P Pulse Ox O2 Delivery O2 Flow Rate FiO2 05/12/16 08:35 37.0 79 18 113/86 100 Room Air 05/12/16 05:21 36.5 56 18 128/73 100 Room Air Intake and Output- Last 8 Hour 05/12/16 Cumulative From/Thru 07:00 05/06/16 20:24 - 05/12/16 02:02 Intake Total 68687 ml Output Total 3703 ml Balance 8269 ml Intake Oral 1790 ml IV Total 38029 ml Output Urine Total 3475 ml Drainage Total 225 ml Estimated Blood Loss 3 ml # Voids 6 # Bowel Movements 2 General: Alert, Oriented X3, Cooperative, No Acute Distress Lungs: Clear to Auscultation Heart: Regular Rate/Rhythm Abdomen: Soft, Appropriately tender SURGICAL WOUND : Wound General Appearence: Steri Strips, No Erythema Wound Drainage Type: JOSHUA Drain #1 (serous fluid only; 75cc yesterday, also leaking around drain.) Neuro: Normal Speech Catheters: None Result Diagram: 05/12/16 0850 05/09/16 0525 Assessment & Plan Impression Primary diagnosis: Perforated marginal ulcer. Other diagnoses: Status post laparoscopic gastric bypass 10 years ago Left antecubital region, superficial phlebitis, appears to be improving with heat. No sign of cellulitis. Depression PTSD ADD Problems: Plan Discussed with Dr. Serrato. D/c JOSHUA drain. D/c IV. Will discharge home today. PO PPI BID Full fluid to soft diet x 2 weeks. Warm heat to left elbow. F/u as outpatient in General Surgery clinic in 10-14 days. Pain Management: PO tylenol VTE Prophylaxis: Sub-Q Heparin (Unfractionated) Resuscitation Status: CPR: Attempt Resuscitation Lauren Saucedo PA-C May 12, 2016 10:40
--- NOTE | 2016-05-12 11:03 | PCM.DISURG ---
Surgical Discharge Instruction Date of Service May 12, 2016 Dates of Hospitalization Date of Hospital Admission May 07, 2016 at 07:04 Providers Admitting Physician: Ever Serrato MD Primary Care Physician: Kirby Bustillos MD Attending Physician: Ever Serrato MD Discharge Diagnosis Discharge Diagnosis Primary diagnosis: Perforated marginal ulcer. Other diagnoses: Status post laparoscopic gastric bypass 10 years ago Depression PTSD ADD Post Operative diagnosis 1. Perforated marginal ulcer. 2. History of Flavia-en-Y gastric bypass. Diet Discharge Diet: Other (full fluid, soft food only) Activity Discharge Activity-General: Try not to overdue, Be up and about, Balance rest and activity, Activity as pain allows, No lifting >10 pounds for 4-6 weeks Dressing and Incisional Care Dressing Care: Allow Steri Stripes to fall off Hygiene: May shower Additional Instructions Discharge Instructions Avoid all NSAIDs including ibuprofen and naproxen. Take pantoprazole twice a day as prescribed. Apply heat to left arm, inner aspect of elbow. If redness and swelling worsens or persists, follow up with primary care provider tomorrow. Follow Up Plan Follow Up Plan Follow-up with Dr. Ever Serrato in the [facility] general surgery outpatient clinic in 10-14 days. Follow-up Provider (F9): Ever Serrato MD Follow-up appointment: Days (10-14) Call your provider for: Fever, Chills, Increasing abdominal pain, Nausea, Vomiting, Wound redness, Increasing wound pain, Discharge @ incision, pus discharge Lauren Saucedo PA-C May 12, 2016 11:03
[2016-05-12] MEDS ORDERED: PANT40TA3 PO (11:09)
[2016-05-12] MEDS ORDERED: ACET650S24 PO (11:09)
--- NOTE | 2016-05-12 11:20 | NUR ---
JOSHUA JOSHUA dc'd intact at 1040. Gauze and hypafix applied to site. No complications.
--- NOTE | 2016-05-12 12:03 | NUR ---
Social Work: Discharge Data: Pt is on day 5 of hospitalization. EMR reviewed, d/c orders are in. No further d/c planning needs at this time. CHIEF INFORMATION SECURITY OFFICER will continue to follow if needs arise. Assessment: Pt who is independent at baseline. Plan: Pt will d/c home via POV today. No further d/c planning needs at this time. CHIEF INFORMATION SECURITY OFFICER will continue to follow if needs arise. STELLA Griffiths
--- NOTE | 2016-05-12 12:13 | PCM.DC.SUR ---
Discharge Summary Date of Service: May 12, 2016 Date of Hospital Admission: May 07, 2016 at 07:04 Date of Operation(s): 05/07/2016 Date of Discharge: 05/12/2016 Diagnosis at Time of Discharge Primary diagnosis: Perforated marginal ulcer. 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 Depression PTSD ADD Problems: Operation Laparoscopic repair of perforated marginal ulcer with omental patch (Mehdi patch). Brief History and Physical: The patient is a 45-year-old female who underwent a laparoscopic Flavia-en-Y gastric bypass approximately 10 years ago. She lost 200 pounds. She has not had followup care in the last few years. She has not been taking a PPI. She developed acute onset abdominal pain prior to presentation to the emergency department. A CT scan with oral contrast showed extravasation of the gastrojejunal anastomosis. Consultants: None. Hospital Course: The patient presented to the emergency department on the evening of 05/06/2016 complaining of severe abdominal pain. Workup in the emergency department including a CT scan with oral contrast which demonstrated extravasation of the contrast in the area of the gastrojejunostomy from her previous Flavia-en-Y gastric bypass from approximately 10 years ago for weight loss. She was taken to the operating room by Dr. Ever Serrato for the above listed procedure. The patient tolerated the procedure well and there were no postoperative complications. Postoperatively the patient was managed with nothing by mouth status, a nasojejunal tube, PPI drip, and antibiotics. On her third postsurgical day she underwent an upper GI Gastrografin study which showed no sign of extravasation of contrast. The NG tube was removed. A clear fluid diet was started and advanced which she tolerated well. On her fifth postsurgical day her antibiotics were stopped as well as her PPI drip and she was changed to an oral PPI twice a day. On her sixth postsurgical day she was tolerating a full liquid diet and had very minimal pain which was well controlled on Tylenol. She was passing bowel movements and had no nausea or vomiting. She was discharged home after having her JOSHUA drain removed. Pathology: None. Disposition: The patient was discharged home tolerating a full liquid intake with no nausea or vomiting. She was having bowel movements. Her pain was well-controlled with oral Tylenol. She is to remain on twice a day dosing of pantoprazole 40 mg for 2 weeks. She has been instructed to avoid all NSAIDs. Follow-up Plan: Follow-up is with Dr. Ever Serrato at the [facility] general surgery outpatient clinic in 10-14 days. Acetaminophen (Acetaminophen Liquid) 650 Mg/20 Ml Liquid 650 MG PO Q6H PRN PRN For Pain Clonazepam (Clonazepam) 0.5 Mg Tablet 0.5-1 MG PO BID PRN PRN For Anxiety ( Reported) Lisdexamfetamine Dimesylate (Vyvanse) 50 Mg Capsule 50 MG PO QAM (Reported) Lisdexamfetamine Dimesylate (Vyvanse) 20 Mg Capsule 20 MG PO QPM (Reported) Pantoprazole DR (Pantoprazole DR) 40 Mg Tablet.dr 40 MG PO BIDAC copies to: Kirby Bustillos MD, Danielle B PA-C May 12, 2016 12:13
--- NOTE | 2016-05-12 13:26 | NUR ---
Discharge Pt dc'd in WC with [facility] at 1305 and had car in front hospital lot that she drove home. All belongings with pt. JOSHUA dressing changed and 4x4 gauze and tegaderm placed. CDI and no signs or symptoms of infection. All discharge instructions reviewed and pt verbalized understanding.
== END 2016-05-12 13:05 | disposition home or self-care (01) | DRG 223 ==
LOC: SED 20:22 → SAS 05-07 01:21 → MPC 05-07 07:04 → MOC 05-10 15:28
PROVIDERS: ADMIT General Practice; ATTEND General Practice
PROC: 0DUA47Z Supplement Jejunum with Autologous Tissue Substitute, Percutaneous Endoscopic Approach (ICD-10-PCS; 2016-05-07)
PROC: 0DQA4ZZ Repair Jejunum, Percutaneous Endoscopic Approach (ICD-10-PCS; principal; 2016-05-07 01:24)
DX: K95.89 Other complications of other bariatric procedure (principal); K28.5 Chronic or unspecified gastrojejunal ulcer with perforation; T81.32XA Disruption of internal operation (surgical) wound, not elsewhere classified, initial encounter; F32.9 Major depressive disorder, single episode, unspecified; T82.898A Other specified complication of vascular prosthetic devices, implants and grafts, initial encounter